=== PATIENT | female | born 1950 | race Caucasian/White ===

== ENCOUNTER 2016-08-04 16:12 | Emergency (ER) | payer MEDICARE, OTHER ==
[~2016-08-04] VITALS: Ht 160 cm; Wt 68.0 kg
[~2016-08-04 16:12] MED LIST: LUCENTIS IO; METH500T PO; PATADAY BOTH EYES; PREDNISONE PO; [UNRECOGNIZED DRUG - CODE]; [UNRECOGNIZED DRUG - CODE]
[2016-08-04 16:17] VITALS: Ht 160 cm; Wt 68.0 kg
[2016-08-04] MEDS ORDERED: DIPHTH/TET/ACEL PERTUSS (ADULT) 0.5 ML VIAL IM* ONE (17:00)
[2016-08-04] MEDS ORDERED: CLIN-73 PO (17:30)
[2016-08-04] MEDS ORDERED: SULF1TAB31 PO (17:30)
--- NOTE | 2016-08-04 17:34 | ERD ---
ER Documentation Chief Complaint Date/Time DATE: 08/04/16 TIME: 17:32 Chief Complaint pt bib RA from home with c/o dog bite to right arm HPI 65-year-old female presents with a dog bite on her right elbow area. It was a neighbor's dog. She has restricted range of motion weakness or pain in the bones. Tetanus is not up-to-date. Patient has multiple antibiotic allergies. ROS All systems reviewed and are negative except as per history of present illness. Medications Home Meds Active Scripts Clindamycin Hcl* (Clindamycin Hcl*) 300 Mg Capsule, 300 MG PO TID for 7 Days, CAP Prov:SAMMIE RENE MD 08/04/16 Sulfamethoxazole/Trimethoprim* (Bactrim Ds* Tablet) 1 Each Tablet, 1 TAB PO BID , #14 TAB Prov:SAMMIE RENE MD 08/04/16 Reported Medications [Pataday] No Conflict Check, 1 DROP BOTH EYES GIVE WITH LUCENTIS 07/02/12 [Prednisone ] No Conflict Check, 40 MG PO GIVE W/ LUCENTIS 07/02/12 [Lucentis] No Conflict Check, IO Q 2 WEEKS. 07/02/12 Hydrocodone/Ibuprofen (Vicoprofen 200-7.5 Tablet) 1 Tab Tablet, BID 07/01/12 Methocarbamol* (Robaxin*) 500 Mg Tab, 1500 MG PO DAILY 07/01/12 Fenoprofen Calcium (Nalfon) 600 Mg Tablet, BID 07/01/12 Allergies Allergies: Coded Allergies: penicillin G (Verified Allergy, Severe, FACIAL SWELLING, 07/04/12) Povidone-Iodine (Verified Allergy, Intermediate, UNK, 07/04/12) Soap (Verified Allergy, Intermediate, UNK, 07/04/12) Uncoded Allergies: MULTIPLE OTHER - PT STATES " UNSURE (Allergy, 07/01/12) PMhx/Soc History of Surgery: Yes (RIGHT FEMORAL ORIF WITH NAILING, Cataracts) Anesthesia Reaction: No Hx Neurological Disorder: No Hx Respiratory Disorders: No Hx Cardiac Disorders: Yes ([place]) Hx Psychiatric Problems: No Hx Miscellaneous Medical Probl: Yes (Spinal surgery) Hx Alcohol Use: Yes Hx Substance Use: Yes (MARIJUANA) Hx Tobacco Use: Yes (1 PACK A DAY) Smoking Status: Current every day smoker Physical Exam Vitals Vital Signs Date Time Temp Pulse Resp B/P Pulse Ox O2 Delivery O2 Flow Rate FiO2 08/04/16 16:17 98.3 74 18 118/62 98 Physical Exam Const: [] Alert, [id number] Head: Atraumatic Eyes: Normal Conjunctiva ENT: Normal External Ears, Nose and Mouth. Neck: Full range of motion..~ No meningismus. Resp: Clear to auscultation bilaterally Cardio: Regular rate and rhythm, no murmurs Abd: Soft, non tender, non distended. Normal bowel sounds Skin: No petechiae or rashes. There is a approximately 3 cm gaping laceration on the medial aspect of the right elbow. There is no bony tenderness or deformities. There 2 puncture wounds on the lateral aspect of the right elbow. There is no active bleeding. The right upper extremity is neurovascular intact. Back: No midline or flank tenderness Ext: No cyanosis, or edema Neur: Awake and alert Psych: Normal Mood and Affect Results 24 hrs Current Medications Medications (Trade) Dose Ordered Sig/Rodo Route PRN Reason Start Time Stop Time Status Last Admin Dose Admin Diphtheria/ Tetanus/Acell Pertussis (Adacel) 0.5 ml ONCE ONCE IM* 08/04/16 17:00 08/04/16 17:01 DC 08/04/16 17:01 Procedures/MDM Right elbow lacerations were irrigated copiously with normal saline. Patient was given a tetanus booster. Given the gaping nature of the medial wound patient agreed to 2 sutures for loose reapproximation to allow drainage. Patient was administered 4 cc lidocaine for local nutrition. 2 4-0 nylon sutures were used to loosely reapproximate the right medial elbow wound. Wounds were dressed. Patient was discharged home with a prescription of Bactrim and clindamycin given her multiple antibiotic allergies as she believes she can take Bactrim as never taken clindamycin before. Patient is advised to return for rashes, shortness of breath, fevers, worsening redness, new worsening symptoms otherwise wound check in 2 days and suture removal 1 week. Signs or symptoms do not suggest fracture, foreign body, tendon or neurologic deficit or ischemia Departure Diagnosis: Primary Impression: Dog bite Encounter type: initial encounter Qualified Code: W54.0XXA - Dog bite, initial encounter Condition: Stable Patient Instructions: Dog Bite Additional Instructions: Recheck in 2 days for infection and suture removal in 7 days for recheck otherwise for new or worsening symptoms. SAMMIE RENE MD August 04, 2016 17:34
== END 2016-08-04 18:27 | disposition home or self-care (01) ==
LOC: FTE 16:12
DX: S51.051A Open bite, right elbow, initial encounter (principal); S51.011A Laceration without foreign body of right elbow, initial encounter; F17.210 Nicotine dependence, cigarettes, uncomplicated; S51.041A Puncture wound with foreign body of right elbow, initial encounter; W54.0XXA Bitten by dog, initial encounter; Y92.9 Unspecified place or not applicable; Z23 Encounter for immunization
CPT/HCPCS: 90471; 90715